=== PATIENT | female | born 1960 | race Caucasian/White ===

== ENCOUNTER → 2016-09-20 | Outpatient (CLI) | payer OTHER ==
[~2016-09-20] MED LIST: ASPI81CH PO; HYDR-3719 PO; LISI10TA2 PO; NEUR300C PO; PLAV1TAB2 AD; PLAV1TAB2 PO; SOMA350T PO; ZYRT10CA PO
--- NOTE | 2016-09-20 13:56 | REPMRS ---
Patient History The patient states she had a clinical breast exam in 09/2015. Patient is postmenopausal and has history of squamous cell skin cancer at age 52. Family history of endometrial cancer in maternal aunt. Digital Woman Screen Mammo: September 20, 2016 - Exam #: [id number] Bilateral CC and MLO view(s) were taken. Technologist: Jennifer Diane, Technologist Prior study comparison: October 27, 2013, right breast digital mammo diagnostic unilateral, performed at [facility]. October 05, 2013, digital woman screen mammo performed at [facility]. November 14, 2011, bilateral digital mammo screening bilat, performed at [facility]. FINDINGS: The breast tissue is heterogeneously dense. This may lower the sensitivity of mammography. There is a moderate amount of heterogeneously dense fibroglandular tissue which is fairly symmetric. There is no interval development of dominant mass, architectural distortion, or clustered microcalcification typical of malignancy. There has been no change in the appearance of the mammogram from the prior studies. ASSESSMENT: BI-RADS/ACR category 1 mammogram. Negative. Recommendation Routine screening mammogram of both breasts in 1 year (for women over age 40). This mammogram was interpreted with the aid of an FDA-approved computer-aided dectection system. Electronically Signed By: Jared Nevarez MD 09/20/16 [id number]
--- NOTE | 2016-09-20 15:45 | REP ---
Clinical: Postmenopausal bleeding . Technique: Transabdominal pelvic ultrasound followed by transvaginal examination for better evaluation of the endometrium and adnexa. Findings: Bladder is unremarkable and measures 12.3 x 5.7 x 8.6 cm . Normal anteverted uterus measures 7.7 x 3.5 x 4.4 cm . The endometrial complex measures 5.1 mm thickness. No discrete uterine or endometrial abnormalities are appreciated. Right ovary not visualized. Left ovary normal and measures 2.4 x 1.6 x 1.1 cm. No pelvic fluid or adnexal mass lesion. Impression: 1. No obvious acute abnormality appreciated. Right ovary not visualized.
== END ==
LOC: M WHC 10:39
PROVIDERS: ATTEND Nurse Practitioner Women's Health
DX: Z12.31 Encounter for screening mammogram for malignant neoplasm of breast (principal); N95.0 Postmenopausal bleeding
CPT/HCPCS: 76830; 76856; G0123; G0202; G0463

== ENCOUNTER → 2016-09-20 | Outpatient (REF) | payer OTHER | LOC: M SFHCWAGY 11:14 | PROVIDERS: ATTEND Nurse Practitioner Women's Health | DX: Z12.4 Encounter for screening for malignant neoplasm of cervix (principal) ==